=== PATIENT | female | born 1955 | race Caucasian/White ===

== ENCOUNTER 2016-10-03 07:23 | Day surgery (SDC) | payer BC ==
--- NOTE | ~2016-10-03 | EGD ---
EGD REPORT [facility] [address] [address] NAME: HAYDE BAILEY : 55 STATUS : REG [facility]#: [id number] AGE: 60 ADM/REG DATE : 10/03/16 MR#: [id number] REPORT SERV DATE: 10/03/16 DICTATED BY: KEERTHI MONIQUE DATE: 10/03/16 REPORT STATUS : Draft [facility]ANSCRIBED BY: [facility] DATE: 10/03/16 Endoscopy Center Patient Name: Hayde Bailey Date of : 1955 Attending MD: KEERTHI MONIQUE MD Procedure Date No Time: 10/03/2016 Procedure: Upper GI endoscopy Indications: Iron deficiency anemia Referring MD: SEN MINOR Medicines: See the Anesthesia note for documentation of the administered medications Complications: No immediate complications. Procedure: Pre-Anesthesia Assessment: - ASA Grade Assessment: II - A patient with mild systemic disease. After obtaining informed consent, the endoscope was passed under direct vision. Throughout the procedure, the patient's blood pressure, pulse, and oxygen saturations were monitored continuously. The GIF H190 [id number] was introduced through the mouth, and advanced to the second part of duodenum. The upper GI endoscopy was accomplished without difficulty. The patient tolerated the procedure well. Findings: The 2nd part of the duodenum was normal. Biopsies were taken with a cold forceps for histology. The entire examined stomach was normal. The cardia and gastric fundus were normal on retroflexion. A small hiatus hernia was present. Impression: - Normal 2nd part of the duodenum. Biopsied. - Normal stomach. - Hiatus hernia. Recommendation: - Patient has a contact number available for emergencies. The signs and symptoms of potential delayed complications were discussed with the patient. Return to normal activities tomorrow. Written discharge instructions were provided to the patient. - Regular diet. - Continue present medications. - FOR YOUR BIOPSY RESULTS: Please go to [email or web address] and register to receive your results via the portal. Your biopsy results will be EGD REPORT [address] [address] NAME: HAYDE BAILEY : 55 STATUS : REG [facility] PAT#: [id number] AGE: 60 ADM/REG DATE : 10/03/16 MR#: [id number] REPORT SERV DATE: 10/03/16 DICTATED BY: KEERTHI MONIQUE DATE: 10/03/16 REPORT STATUS : Draft TRANSCRIBED BY: [employer] DATE: 10/03/16 posted there in about 7 to 10 days. IF you do not see result in 10 days, call office. Procedure Code(s): --- Professional --- 49387, Esophagogastroduodenoscopy, flexible, transoral; with biopsy, single or multiple Diagnosis Code(s): --- Professional --- K44.9, Diaphragmatic hernia without obstruction or gangrene D50.9, Iron deficiency anemia, unspecified CPT copyright 2013 [employer]. All rights reserved. The codes documented in this report are preliminary and upon automobile damage appraiser review may be revised to meet current compliance requirements. Keerthi Monique MD KEERTHI MONIQUE MD 10/03/2016 8:46 AM This report has been signed electronically. Number of Addenda: 0 Note Initiated On: 10/03/2016 8:36 AM Scope Withdrawal Time 0 hours 0 minutes 0 seconds [address] [place] [address]
--- NOTE | ~2016-10-03 | EGD ---
EGD REPORT [facility] [address] [address] NAME: HAYDE BAILEY : 55 STATUS : REG [facility]#: [id number] AGE: 60 ADM/REG DATE : 10/03/16 MR#: [id number] REPORT SERV DATE: 10/03/16 DICTATED BY: KEERTHI MONIQUE DATE: 10/03/16 REPORT STATUS : Draft [facility]IBED BY: [facility] DATE: 10/03/16 Endoscopy Center Patient Name: Hayde Bailey Date of : 1955 Attending MD: KEERTHI MONIQUE MD Procedure Date No Time: 10/03/2016 Procedure: Colonoscopy Indications: Iron deficiency anemia, Last colonoscopy: 2006 Referring MD: SEN MINOR Medicines: See the Anesthesia note for documentation of the administered medications Complications: No immediate complications. Procedure: Pre-Anesthesia Assessment: - ASA Grade Assessment: II - A patient with mild systemic disease. After I obtained informed consent, the scope was passed under direct vision. Throughout the procedure, the patient's blood pressure, pulse, and oxygen saturations were monitored continuously. The [facility] [id number] was introduced through the anus and advanced to the cecum, identified by appendiceal orifice and ileocecal valve. The colonoscopy was performed without difficulty. The patient tolerated the procedure well. The quality of the bowel preparation was adequate. Some corn debris in colon. Findings: The perianal and digital rectal examinations were normal. Diverticula were found in the sigmoid colon and in the ascending colon. Internal hemorrhoids were found during retroflexion and were small. A single angioectasia was found in the cecum. Impression: - Diverticulosis in the sigmoid colon and in the ascending colon. - Internal hemorrhoids. - A single colonic angioectasia. Recommendation: - Patient has a contact number available for emergencies. The signs and symptoms of potential delayed complications were discussed with the patient. Return to normal activities tomorrow. Written discharge instructions were provided to the patient. - Regular diet. - Continue present medications. - Repeat colonoscopy in 5 years for surveillance. EGD REPORT [address] [address] NAME: HAYDE BAILEY : 55 STATUS : REG [facility] PAT#: [id number] AGE: 60 ADM/REG DATE : 10/03/16 MR#: [id number] REPORT SERV DATE: 10/03/16 DICTATED BY: KEERTHI MONIQUE DATE: 10/03/16 REPORT STATUS : Draft TRANSCRIBED BY: [facility] DATE: 10/03/16 - Follow up with Dr Monique or his nurse practitioner in 6 weeks Procedure Code(s): --- Professional --- 39606, Colonoscopy, flexible, proximal to splenic flexure; diagnostic, with or without collection of specimen(s) by brushing or washing, with or without colon decompression (separate procedure) Diagnosis Code(s): --- Professional --- K64.8, Other hemorrhoids K57.30, Diverticulosis of large intestine without perforation or abscess without bleeding K55.20, Angiodysplasia of colon without hemorrhage D50.9, Iron deficiency anemia, unspecified CPT copyright 2013 [employer]. All rights reserved. The codes documented in this report are preliminary and upon wind site manager review may be revised to meet current compliance requirements. Keerthi Monique MD KEERTHI MONIQUE MD 10/03/2016 9:08 AM This report has been signed electronically. Number of Addenda: 0 Note Initiated On: 10/03/2016 8:38 AM Scope Withdrawal Time 0 hours 8 minutes 42 seconds [id number] [place] [address]
[~2016-10-03 07:23] MED LIST: AMARYL2 PO; EZFE 200200 MG PO; FARXIGA10 PO; FISH-EPA1000 MG PO; GLUCPH PO; LANTUS SC; LEVOTHYROXIN75 MCG PO; LOP50 PO; MEVACOR40 MG PO; NOVOLOG SC; PRILOSEC40 MG PO; VITE PO
== END 2016-10-03 23:59 | disposition home health service (06) ==
LOC: DMU 07:23
PROVIDERS: Internal Medicine Gastroenterology
PROC: 0DB98ZX Excision of Duodenum, Via Natural or Artificial Opening Endoscopic, Diagnostic (ICD-10-PCS; principal; 2016-10-03 09:00)
PROC: 0DJD8ZZ Inspection of Lower Intestinal Tract, Via Natural or Artificial Opening Endoscopic (ICD-10-PCS; 2016-10-03 09:00)
DX: K64.8 Other hemorrhoids (principal); K57.30 Diverticulosis of large intestine without perforation or abscess without bleeding; K55.20 Angiodysplasia of colon without hemorrhage; K44.9 Diaphragmatic hernia without obstruction or gangrene; D50.9 Iron deficiency anemia, unspecified; I10 Essential (primary) hypertension; E11.9 Type 2 diabetes mellitus without complications; K21.9 Gastro-esophageal reflux disease without esophagitis; E03.9 Hypothyroidism, unspecified; Z79.4 Long term (current) use of insulin; Z79.899 Other long term (current) drug therapy; E78.00 Pure hypercholesterolemia, unspecified; Z86.010 Personal history of colon polyps; Z90.710 Acquired absence of both cervix and uterus; Z98.890 Other specified postprocedural states
CPT/HCPCS: 82962; 88305